=== PATIENT | female | born 1935 | race Caucasian/White ===

== ENCOUNTER 2024-09-01 23:47 | Inpatient (IN) | payer MEDICARE ==
[2024-09-02 00:25] LABS: Bacteria/HPF None Seen HPF (None Seen); Bilirubin Negative (Negative); Blood, Urine Negative (Negative); CAUTI Indications for Culture Alt mental st,lethar; Clarity Clear (Clear); Glucose, Urine (Dipstick) Normal (Negative); Ketone, Urine Negative (Negative); Leukocyte Negative Leu/uL (Negative); Nitrite Negative (Negative); Protein, Urine (Dipstick) Negative (Neg-Trace); RBC/HPF 0-3 HPF (0-3); Specific Gravity, Urine 1.009 (1.002-1.036); Squamous Epithelial 0-3 HPF (0-3); Urobilinogen Normal mg/dL (Less than 2); WBC/HPF 0-3 HPF (0-3); pH, Urine 6.5 (5.0-9.0)
[2024-09-02 00:26] LABS: Urine Culture Reflex No No
[2024-09-02 00:33] LABS: #Basophils 0.04 10x3/uL (0.0-0.2); %Basophils 0.6 % (0.0-1.0); %Eosinophils 3.6 % (0.0-10.0); %Lymphocytes 44.5 % (21.0-51.0); %Monocytes 10.7 % (0.0-10.0); %Neutrophils 40.4 % (42.0-75.0); Hematocrit 39.6 % (36.0-47.0); Hemoglobin 12.8 g/dL (12.0-16.0); Mean Corpuscular HGB CONC 32.3 g/dL (32.0-36.0); Mean Corpuscular Hemoglobin 27.6 pg (27.0-31.0); Mean Corpuscular Volume 85.5 fL (78.0-98.0); Mean Platelet Volume 11.2 fL (7.4-10.4); Platelet Count 181 10x3/uL (130-400); RBC Distribution Width 14.8 % (11.5-14.5); Red Blood Cell (RBC) Count 4.63 mill/uL (4.20-5.40)
[2024-09-02] MEDS ORDERED: Labetalol HCl 100 MG/20 ML VIAL ONE (00:40)
[2024-09-02 00:50] LABS: ALT (SGPT) 17 U/L (8-55); AST (SGOT) 24 U/L (5-34); Albumin 4.4 g/dL (3.4-4.8); Alkaline Phosphatase 180 U/L (40-110); Anion Gap 17 mmol/L (10-20); BUN (Urea Nitrogen) 18 mg/dL (9.8-20.1); Bilirubin, Total 0.6 mg/dL (0.2-1.2); Calc. Creatinine Clearance 0 mL/min (70-130); Calcium 10.6 mg/dL (7.8-10.44); Carbon Dioxide 23 mmol/L (23-31); Chloride 106 mmol/L (98-107); Estimated GFR 64; Globulin 3.4 g/dL (2.4-3.5); Glucose 121 mg/dL (83-110); Potassium 3.5 mmol/L (3.5-5.1); Protein, Total 7.8 g/dL (5.8-8.1); Sodium 142 mmol/L (136-145)
[2024-09-02 00:53] LABS: Troponin I Less than 0.010 ng/mL (< 0.028)
[2024-09-02] MEDS ORDERED: Acetaminophen 500 MG TAB ONE (02:13)
[2024-09-02] MEDS ORDERED: Ketorolac Tromethamine 30 MG (1 mL) VIAL ONE (02:13)
[2024-09-02 04:04] LABS: #Basophils 0.03 10x3/uL (0.0-0.2); %Basophils 0.5 % (0.0-1.0); %Eosinophils 2.5 % (0.0-10.0); %Lymphocytes 37.3 % (21.0-51.0); %Monocytes 11.8 % (0.0-10.0); %Neutrophils 47.7 % (42.0-75.0); Hemoglobin 11.4 g/dL (12.0-16.0); Mean Corpuscular HGB CONC 32.6 g/dL (32.0-36.0); Mean Corpuscular Hemoglobin 27.9 pg (27.0-31.0); Mean Corpuscular Volume 85.6 fL (78.0-98.0); Mean Platelet Volume 11.5 fL (7.4-10.4); Platelet Count 153 10x3/uL (130-400); RBC Distribution Width 14.7 % (11.5-14.5); Red Blood Cell (RBC) Count 4.09 mill/uL (4.20-5.40)
[2024-09-02 04:19] LABS: Anion Gap 14 mmol/L (10-20); BUN (Urea Nitrogen) 15 mg/dL (9.8-20.1); Calc. Creatinine Clearance 0 mL/min (70-130); Carbon Dioxide 23 mmol/L (23-31); Chloride 110 mmol/L (98-107); Estimated GFR 76; Glucose 108 mg/dL (83-110); Potassium 3.8 mmol/L (3.5-5.1); Sodium 143 mmol/L (136-145)
[2024-09-02 04:25] LABS: Troponin I 0.014 ng/mL (< 0.028)
[2024-09-02 05:04] VITALS: BMI 22.6
[2024-09-02 06:48] LABS: Troponin I 0.011 ng/mL (< 0.028)
[2024-09-02] MEDS: Heparin 5,000 UNITS/ML VIAL SC SCH (09:46)
[2024-09-02 10:30] LABS: Magnesium 2.2 mg/dL (1.6-2.6)
[2024-09-02] MEDS: hydrALAZINE 20 MG/ML VIAL SLOW IVP PRN (17:01)
[2024-09-02] MEDS: Losartan 25 MG TAB PO SCH (23:07)
[2024-09-02] MEDS: Anastrozole 1 MG TAB PO SCH (23:08)
[2024-09-02] MEDS: Acetaminophen 325 MG TAB PO PRN (23:27)
[2024-09-03] MEDS: Ketorolac Tromethamine 30 MG (1 mL) VIAL IVP PRN (01:06)
[2024-09-03 05:26] LABS: Anion Gap 13 mmol/L (10-20); BUN (Urea Nitrogen) 13 mg/dL (9.8-20.1); Calc. Creatinine Clearance 53 mL/min (70-130); Calcium 10.1 mg/dL (7.8-10.44); Carbon Dioxide 22 mmol/L (23-31); Chloride 108 mmol/L (98-107); Estimated GFR 76; Glucose 114 mg/dL (83-110); Potassium 3.6 mmol/L (3.5-5.1); Sodium 139 mmol/L (136-145)
[2024-09-03] MEDS: cefTRIAXone\\ROCEPHIN 1 GM in Sodium Chloride 0.9% 100 ML IVPB SCH (17:44)
[2024-09-04] MEDS: Metoprolol Tartrate 25 MG TAB PO SCH (20:55)
[2024-09-04] MEDS: Losartan 25 MG TAB PO SCH (20:55)
[2024-09-05 09:42] LABS: #Basophils 0.04 10x3/uL (0.0-0.2); %Basophils 0.7 % (0.0-1.0); %Lymphocytes 36.5 % (21.0-51.0); %Monocytes 12.6 % (0.0-10.0); %Neutrophils 44.9 % (42.0-75.0); Hematocrit 37.8 % (36.0-47.0); Hemoglobin 12.5 g/dL (12.0-16.0); Mean Corpuscular HGB CONC 33.1 g/dL (32.0-36.0); Mean Corpuscular Hemoglobin 27.9 pg (27.0-31.0); Mean Corpuscular Volume 84.4 fL (78.0-98.0); Mean Platelet Volume 11.2 fL (7.4-10.4); Platelet Count 150 10x3/uL (130-400); RBC Distribution Width 15.2 % (11.5-14.5); Red Blood Cell (RBC) Count 4.48 mill/uL (4.20-5.40)
[2024-09-05 09:54] LABS: Anion Gap 12 mmol/L (10-20); BUN (Urea Nitrogen) 20 mg/dL (9.8-20.1); Calc. Creatinine Clearance 55 mL/min (70-130); Calcium 10.3 mg/dL (7.8-10.44); Carbon Dioxide 24 mmol/L (23-31); Chloride 112 mmol/L (98-107); Estimated GFR 80; Glucose 103 mg/dL (83-110); Magnesium 2.2 mg/dL (1.6-2.6); Phosphorus 2.8 mg/dL (2.3-4.7); Potassium 3.7 mmol/L (3.5-5.1); Sodium 144 mmol/L (136-145)
[2024-09-05] MEDS: Acetaminophen 325 MG TAB PO SCH (15:10)
[2024-09-05] MEDS: Cholecalciferol 1,000 UNITS (25 MCG) TAB PO SCH (21:50)
[2024-09-05] MEDS: Multivit, Therapeutic 1 TAB PO SCH (21:50)
[2024-09-05] MEDS: Cyanocobalamin (Vitamin B-12) 1,000 MCG TAB PO SCH (21:50)
[2024-09-05] MEDS: Saccharomyces boulardii 250 MG CAP PO SCH (21:50)
[2024-09-05] MEDS: Docusate 100 MG CAP PO SCH (21:50)
[2024-09-05] MEDS: Heparin 5,000 UNITS/ML VIAL SC SCH (22:03)
[2024-09-06] MEDS: Ondansetron PF 4 MG/2 ML Vial IVP PRN (06:59)
[2024-09-06] MEDS ORDERED: Amlodipine 5 MG TAB PO SCH (09:00)
[2024-09-06] MEDS: Sertraline 100 MG TAB PO SCH (10:06)
[2024-09-06] MEDS: Amlodipine 5 MG TAB PO SCH (10:07)
[2024-09-07] MEDS ORDERED: Electrolyte Replacement Protocol 1 EACH FS PRN (15:02)
[2024-09-07] MEDS ORDERED: Electrolyte Replacement Protocol FS PRN (15:30)
[2024-09-08 08:21] LABS: Anion Gap 11 mmol/L (10-20); BUN (Urea Nitrogen) 16 mg/dL (9.8-20.1); Calc. Creatinine Clearance 52 mL/min (70-130); Calcium 10.6 mg/dL (7.8-10.44); Carbon Dioxide 29 mmol/L (23-31); Chloride 107 mmol/L (98-107); Estimated GFR 76; Glucose 105 mg/dL (83-110); Potassium 4.1 mmol/L (3.5-5.1); Sodium 143 mmol/L (136-145)
[2024-09-09 14:48] VITALS: BMI 22.5
[2024-09-09] MEDS: Cefdinir 300 MG CAP PO SCH (22:28)
[2024-09-11] MEDS: Senokot 8.6 MG TAB PO PRN (15:44)
[2024-09-12 09:22] LABS: #Basophils 0.04 10x3/uL (0.0-0.2); %Basophils 0.7 % (0.0-1.0); %Eosinophils 3.7 % (0.0-10.0); %Lymphocytes 33.1 % (21.0-51.0); %Monocytes 9.5 % (0.0-10.0); %Neutrophils 52.4 % (42.0-75.0); Hemoglobin 11.7 g/dL (12.0-16.0); Mean Corpuscular HGB CONC 31.6 g/dL (32.0-36.0); Mean Corpuscular Hemoglobin 27.9 pg (27.0-31.0); Mean Corpuscular Volume 88.3 fL (78.0-98.0); Platelet Count 156 10x3/uL (130-400); RBC Distribution Width 15.2 % (11.5-14.5); Red Blood Cell (RBC) Count 4.19 mill/uL (4.20-5.40)
[2024-09-12 09:40] LABS: Anion Gap 10 mmol/L (10-20); BUN (Urea Nitrogen) 15 mg/dL (9.8-20.1); Calc. Creatinine Clearance 50 mL/min (70-130); Calcium 10.3 mg/dL (7.8-10.44); Carbon Dioxide 26 mmol/L (23-31); Chloride 106 mmol/L (98-107); Estimated GFR 72; Glucose 116 mg/dL (83-110); Potassium 3.7 mmol/L (3.5-5.1); Sodium 138 mmol/L (136-145)
[2024-09-13 11:24] VITALS: BP 127/67; TEMP 97.4
== END 2024-09-13 14:44 | DRG 552 ==
LOC: ERS 23:47 → 2NO 09-02 03:30 → OBSVTOIN 09-02 17:09 → SURG A 09-08 16:22
PROVIDERS: ADMIT Internal Medicine; ATTEND Internal Medicine
DX: S22.081A Stable burst fracture of T11-T12 vertebra, initial encounter for closed fracture (principal); N39.0 Urinary tract infection, site not specified; R53.81 Other malaise; Z88.1 Allergy status to other antibiotic agents; I10 Essential (primary) hypertension; E78.5 Hyperlipidemia, unspecified; M19.90 Unspecified osteoarthritis, unspecified site; Z90.710 Acquired absence of both cervix and uterus; Z98.890 Other specified postprocedural states; I44.7 Left bundle-branch block, unspecified; Z66 Do not resuscitate; Z79.01 Long term (current) use of anticoagulants; Z79.899 Other long term (current) drug therapy; W18.30XA Fall on same level, unspecified, initial encounter
CPT/HCPCS: 36415; 70450; 71045; 72125; 72128; 72131; 80048; 80053; 81001; 82306; 83735; 83880; 84100; 84484; 85025; 87077; 87086; 87186; 93005; 93010; 93306; 96372; 96374; 96375; G0378; J0360; J0696; J1644; J1885; J2405